=== PATIENT | male | born 1990 | race African-American/Black ===

== ENCOUNTER 2016-12-12 03:39 | Emergency (ER) | payer SELFPAY ==
[2016-12-12] MEDS ORDERED: METHYLPREDNISOLONE PF 125MG/VIAL IVP ONE (03:41)
[2016-12-12] MEDS ORDERED: IPRATROPIUM/ALBUTEROL (0.5MG/3MG) NEB INH ONE (03:41)
--- NOTE | 2016-12-12 03:46 | Emergency Department Record ---
History of Present Illness - General Chief Complaint: Shortness of breath Stated Complaint: SANJAY Time Seen by Provider: 12/12/16 03:41 Source: Patient, Family, EMS Mode of Arrival: Ambulatory Limitations: No limitations - History of Present Illness Initial Comments: 26 yo male presents from work with wheezing and shortness of breath. He has a history of asthma. He did not have his inhaler tonight. EMS was called when the wheezing started. He has nasal congestion and environmental allergies as well. No fever. No sputum. No NVD. He denies a history of intubation. No treatments prior to arrival. No current PCP. No history of intubation. Prior admission at age 17. Additionally he has had right upper dental pain for several days. He is on PCN. He is waiting for a dental referral. MD Complaint: "Asthma attack" -: Hour(s) (1am) Severity: Moderate Improves With: Nothing Worsens With: Other (Did not have his inhaler) Known History Of: Asthma Context: Allergen exposure Associated Symptoms: Denies other symptoms Treatments Prior to Arrival: None - Related Data Home Oxygen Therapy: No Home Medications Medication Instructions Recorded Confirmed Last Taken Albuterol Sulfate [Ventolin Hfa] 1 - 2 puff IH .EVERY 4-6 HRS PRN 12/12/1612/12 Unknown Penicillin V Potassium 500 mg PO Q6H 12/12/16 12/12/16 Unknown Previous Rx's Medication Instructions Recorded Albuterol Sulfate [Proair Hfa] 1 - 2 puff IH .EVERY 4-6 HOURS PRN 12/12/16 #1 inhaler Prednisone [Prednisone 20Mg] 20 mg PO BID #10 tab 12/12/16 Allergies Allergy/AdvReac Type Severity Reaction Status Date / Time No Known Drug Allergies Allergy Verified 12/12/16 03:41 Review of Systems Constitutional: Denies: Chills, Fever, Malaise, Weakness Eyes: Denies: Eye discharge ENT: Reports: Congestion. Denies: Ear pain, Epistaxis, Throat pain Respiratory: Reports: Cough, Wheezes Cardiovascular: Denies: Chest pain, Palpitations, Syncope Endocrine: Denies: Fatigue Gastrointestinal: Denies: Abdominal pain, Diarrhea, Nausea, Vomiting Genitourinary: Denies: Dysuria, Frequency, Hematuria Musculoskeletal: Denies: Arthralgia, Back pain, Joint swelling, Myalgia Skin: Denies: Bruising, Change in color, Rash Neurological: Denies: Headache, Numbness, Vertigo, Weakness Psychiatric: Denies: Anxiety Hematological/Lymphatic: Denies: Blood Clots, Easy bleeding, Easy bruising, Swollen glands Physical Exam - General General Appearance: Alert, Oriented x3, Cooperative, No acute distress, Other ( Speaks in full sentences) Limitations: No limitations - Head Head exam: Normal inspection - Eye Eye exam: Normal appearance. negative: Conjunctival injection, Periorbital swelling - ENT ENT exam: Mucous membranes moist, Normal external ear exam, Normal orophraynx, TM's normal bilaterally Ear exam: Normal external inspection. negative: External canal tenderness Nasal Exam: Discharge (clear) Mouth exam: Normal external inspection, Tongue normal Teeth exam: Dental caries, Dental tenderness # (30), Other (tender RUE ). negative: Normal inspection, Gingival enlargement Throat exam: Normal inspection. negative: Tonsillar erythema, Tonsillar exudate - Neck Neck exam: Normal inspection, Full ROM. negative: Lymphadenopathy, Tenderness - Respiratory Respiratory exam: Decreased breath sounds, Prolonged expiratory, Wheezes, Other (No distress, expiratory wheeze, non conversation limitation). negative: Normal lung sounds bilaterally, Accessory muscle use, Respiratory distress, Rhonchi, Stridor - Cardiovascular Cardiovascular Exam: Regular rate, Normal rhythm, Normal heart sounds - GI/Abdominal GI/Abdominal exam: Soft, Tenderness - Rectal Rectal exam: Deferred - exam: Deferred - Extremities Extremities exam: Normal inspection, Full ROM, Normal capillary refill. negative: Tenderness - Back Back exam: Reports: Normal inspection, Full ROM. Denies: Muscle spasm, Rash noted, Tenderness - Neurological Neurological exam: Alert, Normal gait, Oriented X3, Reflexes normal - Psychiatric Psychiatric exam: Normal affect, Normal mood. negative: Agitated, Anxious - Skin Skin exam: Dry, Intact, Normal color, Warm. negative: Cyanosis, Diaphoretic, Erythema Course - Reevaluation(s) Reevaluation #1: CBC reviewed. No changes. 12/12/16 04:09 Reevaluation #2: On recheck he is feeling much better The wheezing has resolved His work of breathing is at a normal level No conversational dyspnea. 12/12/16 04:14 Reevaluation #3: No acute changes on the CBC or BMP 12/12/16 04:19 Medical Decision Making - Lab Data Result diagrams: 12/12/16 03:55 12/12/16 03:55 Disposition Disposition: Discharge Clinical Impression: Pain, dental Asthma Qualifiers: Asthma severity: unspecified severity Asthma complication type: with acute exacerbation Qualified Code(s): J45.901 - Unspecified asthma with (acute) exacerbation Disposition: Home, Self-Care Condition: (1) Good Instructions: Asthma (ED), Toothache (ED) Additional Instructions: Call for a new family doctor Return if worse, short of breath, or any new concerns Call for a dentist from the referral provided Continue your antibiotics Prescriptions: Albuterol Sulfate [Proair Hfa] 1 - 2 puff IH .EVERY 4-6 HOURS PRN #1 inhaler PRN Reason: Difficulty In Breathing Prednisone [Prednisone 20Mg] 20 mg PO BID #10 tab Forms: Patient Portal Access Time of Disposition: 04:18
[2016-12-12] MEDS ORDERED: OXYMETAZOLINE HCL 15 ML BTL NASAL ONE (03:50)
[2016-12-12 04:02] LABS: HEMATOCRIT 41.8 % (42.0-52.0); HEMOGLOBIN 14.3 gm/dl (14.0-18.0); MEAN CELL VOLUME 86.4 fl (81-97); MEAN CORPUSCULAR HEMOGLOBIN 29.5 pg (27-33); MEAN CORPUSCULAR HGB CONC 34.2 g/dl (32-36); MEAN PLATELET VOLUME 9.1 fl (7.4-10.4); PLATELET COUNT 315 K/uL (130-400); RED BLOOD COUNT 4.84 M/uL (4.40-5.70); RED CELL DISTRIBUTION WIDTH 12.7 % (11.5-14.5); WHITE BLOOD COUNT W/O DIFF 9.1 K/uL (4.2-12.2)
[2016-12-12 04:13] LABS: ANION GAP 6.1 (7-16); BLOOD UREA NITROGEN 7 mg/dL (9-20); CARBON DIOXIDE 25.9 mmol/L (22-30); CREATININE 1.1 mg/dL (0.66-1.25); EST GLOMERULAR FILTRATION RATE > 60 ml/min; GLUCOSE,RANDOM 84 mg/dL (70-110)
== END 2016-12-12 04:47 | disposition home or self-care (01) ==
LOC: ER 03:39
DX: J45.901 Unspecified asthma with (acute) exacerbation (principal); K08.89 Other specified disorders of teeth and supporting structures
CPT/HCPCS: 80048; 85027; 94640; 96374; 99283; J2930